=== PATIENT | female | born 1935 | race Caucasian/White ===

== ENCOUNTER → 2020-10-24 16:50 | Outpatient (CLI) | payer MEDICARE, SELFPAY ==
--- NOTE | ~2020-10-24 | MM_ITS ---
EXAMINATION: MM scrn maureen implant BI w merry HISTORY: Screening mammogram TECHNIQUE: Craniocaudal and mediolateral oblique 3-D tomosynthesis images with implant displacement a nd synthetic 2-D images were generated. Craniocaudal and mediolateral oblique views of the breasts wi thout implant displacement were obtained using full field digital mammography. CAD analysis was submi tted and interpreted. COMPARISON: 11/04/2016, 06/13/2014, 05/18/2013, 03/10/2012, 03/12/2011, 03/04/2010 bilateral implant digita l screening mammogram examinations BREAST PARENCHYMAL COMPOSITION: The breasts are heterogeneously dense, which may obscure small masses . FINDINGS: Status post bilateral augmentation mammoplasty. Bilateral benign calcified microhematomas are again present. There is asymmetric increased density in the posterior outer right breast on craniocaudal projection. Diagnostic right mammogram and right breast ultrasound examination are recommended. Otherwise there is no evidence of suspicious mass, calcification, or architectural distortion to sugg est malignancy in either breast. There has been no other suspicious interval change. IMPRESSION: 1. Asymmetric density in the posterior outer right breast 2. Diagnostic right mammogram and right breast ultrasound examination are recommended. BI-RADS Category 0: Incomplete: Needs additional imaging evaluation. Reviewed, dictated and finalized at location B. UMER SAFETY INSPECTOR IMPRESSION: 1. Asymmetric density in the posterior outer right breast 2. Diagnostic right mammogram and right breast ultrasound examination are recom mended. BI-RADS Category 0: Incomplete: Needs additional imaging evaluation.
== END ==
PROVIDERS: PCP Family Medicine; Visit Provider Family Medicine
DX: Z12.31 Encounter for screening mammogram for malignant neoplasm of breast (principal); R92.8 Other abnormal and inconclusive findings on diagnostic imaging of breast
CPT/HCPCS: 77063; 77067

== ENCOUNTER → 2020-11-15 08:32 | Outpatient (CLI) | payer MEDICARE, SELFPAY ==
--- NOTE | ~2020-11-15 | MM_ITS ---
EXAMINATION: MM diagnostic mammo implant RT HISTORY: Follow-up right breast asymmetries TECHNIQUE: Additional 3-D tomosynthesis images of the right breast were performed and synthetic 2-D i mages were generated. CAD analysis was submitted and interpreted. COMPARISON: Comparison to multiple prior studies sequentially, with oldest reviewed study dated 03/04. BREAST PARENCHYMAL COMPOSITION: Breast composed of scattered areas of fibroglandular density FINDINGS: There are partially calcified bilateral subglandular silicone implants. No significant change to mult iple asymmetric nodules in coarse calcifications in the lateral aspect of the right breast allowing f or differences of technique, likely silicone granulomas from extracapsular implant rupture. No new ma sses, calcifications or architectural distortion to suggest malignancy. IMPRESSION: 1. No significant change to asymmetric nodular densities lateral aspect of the right breast with calc ifications, likely sequela of extracapsular implant rupture. Consider correlation with MRI as clinica lly indicated. No evidence for malignancy. 2. Routine yearly screening mammogram and regular clinical breast examination are recommended. BI-RADS Category 2: Benign finding(s). Reviewed, dictated and finalized at location A. UMER LOAN OFFICER IMPRESSION: 1. No significant change to asymmetric nodular densities lateral aspect of the right breast with calcifications, likely sequela of extracapsular implant ruptu re. Consider correlation with MRI as clinically indicated. No evidence for georgi gnancy. 2. Routine yearly screening mammogram and regular clinical breast examination a re recommended. BI-RADS Category 2: Benign finding(s).
== END ==
PROVIDERS: PCP Family Medicine; Visit Provider Family Medicine
DX: R92.8 Other abnormal and inconclusive findings on diagnostic imaging of breast (principal)
CPT/HCPCS: 77065

== ENCOUNTER 2021-06-23 14:55 | Emergency (ER) | payer MEDICARE, SELFPAY ==
[2021-06-23] VITALS (10 sets, daily range): BP systolic 158–179; BP diastolic 83–91; PULSE 82–102; RESP 16–20; TEMP 36.8; O2SAT 99–100
--- NOTE | ~2021-06-23 | CT_ITS ---
EXAMINATION: CT brain wo con DATE: 06/23/2021 17:29 INDICATION: Vertigo. TECHNIQUE: Computed tomography (CT) of the head was performed without intravenous contrast. The mA wa s adjusted according to patient size. Iterative reconstruction technique was employed. The dose-lengt h product was 605.33 mGy-cm. COMPARISON: None FINDINGS: There are scattered areas of low attenuation in the cerebral white matter. There are lacuna r infarcts in the left basal ganglia. There is no intracranial hemorrhage, acute infarction, or abnor mal intracranial mass lesion. The ventricles are normal in size. There are likely changes of ocular l ens replacement surgeries. There is mucosal thickening in right sphenoid sinus with sclerosis of the sinus johnson, consistent with chronic sinusitis. The mastoid air cells are normal. IMPRESSION: 1. 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 2. Extensive nonspecific cerebral white matter disease, which likely represents chronic small vessel ischemic disease. 3. Chronic sinusitis. Reviewed, dictated and finalized at location A.
--- NOTE | 2021-06-23 14:59 | ECG_ITS ---
Measurements Intervals [place] Rate: 85 P: 43 [place]: 153 QRS: -38 QRSD: 92 T: 71 QT: 394 QTc: 470 Interpretive Statements SINUS RHYTHM POSSIBLE LEFT ATRIAL ENLARGEMENT LEFT AXIS DEVIATION BORDERLINE R WAVE PROGRESSION, ANTERIOR LEADS INFERIOR INFARCT, AGE INDETERMINATE BORDERLINE ST-T WAVE ABNORMALITY- HIGH LATERAL LEADS ABNORMAL ECG Electronically Signed On 06-23-2021 20:39:34 CDT by Ede Varghese D.O.
[2021-06-23 15:15] LABS: Basophils Absolute Auto 0.1 K/mm3 (0.0-0.1); Basophils Percent Auto 1.1 % (0.2-1.2); Eosinophils Percent Auto 0.1 % (0-4.4); Hematocrit 39.8 % (37.0-47.0); Immature Granulocyte Absolute 0.07 K/mm3 (0.00-0.031); Immature Granulocyte Percent A 0.8 % (0-0.5); Lymphocytes Absolute Auto 0.79 K/mm3 (0.9-3.2); Lymphocytes Percent Auto 9.3 % (18.3-44.2); Mean Corpuscular HGB Conc 32.7 g/dl (32-36); Mean Corpuscular Hemoglobin 31.7 pg (26-34); Mean Corpuscular Volume 97.1 fl (80-100); Mean Platelet Volume 9.6 fl (7.4-10.4); Monocytes Absolute Auto 0.3 K/mm3 (0.1-0.6); Monocytes Percent Auto 3.4 % (2.6-8.5); Neutrophils Absolute Auto 7.3 K/mm3 (1.3-6.7); Neutrophils Percent Auto 85.3 % (45.5-73.1); Platelet Count Result 350 k/mm3 (150-375); Red Cell Distribution Width 12.9 % (11.5-14.5); White Blood Count 8.5 K/mm3 (4.5-10.0)
[2021-06-23 15:31] LABS: Anion Gap 9 mmol/L (8-16); Blood Urea Nitrogen 21 mg/dL (7-17); Calcium 9.2 mg/dL (8.4-10.2); Carbon Dioxide 25 mmol/L (22-30); Chloride 100 mmol/L (98-107); Estimated CRCL calculation 43 ml/min; Estimated Glomerular Filt Rate > 60; Glucose 138 mg/dL (65-110); Potassium 4.3 mmol/L (3.4-5.0); Sodium 134 mmol/L (137-145)
[2021-06-23] MEDS: MECLIZINE HCL 25 MG TABLET PO (16:01)
[2021-06-23] MEDS: ONDANSETRON INJ 4 MG/2 ML VIAL IV PUSH (16:02)
[2021-06-23] MEDS: SODIUM CHLORIDE 0.9% IV 1,000 ML 999 ML IV CONT (16:02)
--- NOTE | 2021-06-23 16:02 | ED.DIZZY ---
HPI - Dizziness General Chief Complaint: Dizziness Stated Complaint: dizzy/n/v Time Seen by Provider: 06/23/21 15:02 Source: patient and RN notes reviewed Mode of arrival: EMS Limitations: no limitations History of Present Illness HPI Narrative: This is an 86 year old female who presents for evaluation dizziness. Patient states this morning she woke up with spinning sensation with nausea and vomiting. Her dizziness has improved. She reports it was worse with movement this morning but it is minimal currently. She reports having similar episode 30 years ago. She denies headache, focal deficit, numbness or tingling. She denies otalgia or tinnitis. she report chronic sinus disease. She denies chest pain abdominal pain or sob. Related Data Allergies Allergy/AdvReac Type Severity Reaction Status Date / Time No Known Drug Allergies Allergy Unknown Verified 08/01/15 15:34 Review of Systems Review of Systems: All systems reviewed & are unremarkable except as noted in HPI and below Constitutional: Constitutional: Denies chills and Denies fever(s) ENT: Reports vertigo, Reports nasal congestion and Denies sore throat Cardiovascular: Cardiovascular: Denies chest pain Respiratory: Respiratory: Denies cough and Denies dyspnea Gastrointestinal: Gastrointestinal: Denies abdominal pain, Denies diarrhea, Reports nausea and Reports vomiting Genitourinary: Genitourinary: Denies hematuria, Denies dysuria and Denies flank pain Neurologic: Denies headache(s), Denies focal weakness and Denies numbness PMFSH Past Medical History Medical History (Updated 06/24/21 @ 00:00 by [facility]) Hypertension Vertigo Surgical History Surgical History (Updated 06/23/21 @ 16:04 by Diana Ross MD) H/O: hysterectomy History of cholecystectomy Social History Social History (Updated 06/23/21 @ 16:04 by Diana Ross MD) Smoking status: Never smoker Exam Narrative: GENERAL: Well-appearing, well-nourished, and in no acute distress. HEAD: Normocephalic, atraumatic EYES: PERRLA and EOMI, conjunctiva clear without discharge, no nystagmus EARS: TM's clear bilaterally without erythema or dullness NOSE: Nares clear, no rhinorrhea or epistaxis THROAT:Mucous membranes moist, Oropharynx normal without erythema, exudate, peritonsillar swelling or fluctuance NECK: Supple, without lymphadenopathy or mass RESPIRATORY: No respiratory distress, Airway patent, Respirations non-labored, Clear to auscultation without rales, rhonchi or wheeze HEART: Regular rate and rhythm. No murmur heard. Normal peripheral pulses. ABDOMEN: Soft, nontender, nondistended, normal active bowel sounds. No masses. No rebound or guarding, No organomegaly. EXTREMITIES: No edema, SKIN: Warm, dry, normal color without rash NEURO: Alert and oriented x3. CN 2-12 grossly intact. No focal deficits. normal finger to nose, no nystagmus PSYCH: Normal mood and affect. Course Reevaluation(s) Reevaluation #1: Patient's labs and CT are uremarkable. She is now able to sit up and ambulate with dizziness, nausea or vomiting. No focal deficits to suggest central cause of vertigo. Date: 06/23/21 Time: 19:14 Vital Signs Vital signs: Vital Signs Temperature 98.2 F 06/23/21 14:54 Pulse Rate 87 06/23/21 14:54 Respiratory Rate 16 06/23/21 14:54 Blood Pressure 173/83 H 06/23/21 14:54 Pulse Oximetry 100 06/23/21 14:54 Temperature 98.2 F 06/23/21 14:54 Pulse Rate 82 06/23/21 19:50 Respiratory Rate 19 06/23/21 19:50 Blood Pressure 168/89 H 06/23/21 19:50 Pulse Oximetry 99 06/23/21 19:50 MDM - Dizziness Lab Data Attestation: I reviewed the patient's lab results. Result diagrams: 06/23/21 15:08 06/23/21 15:08 Labs: Lab Results 06/23/21 06/23/21 Range/Units 15:08 15:08 WBC 8.5 (4.5-10.0) K/mm3 RBC 4.10 L (4.2-5.4) M/mm3 Hgb 13.0 (12.0-15.0) g/dL Hct 39.8 (37.0-47.0) %
--- NOTE | 2021-06-23 17:15 | PC.NURSE ---
ATTEMPT TO SIT PT UP TO AMBULATED IN HALLS. PT C/O DIZZINESS UPON SITTING UPRIGHT. DR CAT NOTIFIED
[2021-06-23] MEDS: PROMETHAZINE HCL 25 MG/ML AMPUL 12.5 MG IV PUSH (17:46)
[2021-06-23] MEDS: ACETAMINOPHEN 500 MG TABLET 1000 MG PO (17:46)
--- NOTE | 2021-06-23 18:55 | PC.NURSE ---
PT WALKED IN [place]. DENIES DIZZINESS OR NAUSEA
--- NOTE | 2021-06-23 19:14 | PC.NURSE ---
Assumed care of pt. at this time. Report from [facility] [place]
== END 2021-06-23 19:50 | disposition home or self-care (01) ==
PROVIDERS: Emergency Medicine; Emergency Provider General Practice; PCP Family Medicine
DX: R42 Dizziness and giddiness (principal); R11.2 Nausea with vomiting, unspecified; J32.9 Chronic sinusitis, unspecified; I10 Essential (primary) hypertension; R90.82 White matter disease, unspecified; R94.31 Abnormal electrocardiogram [ECG] [EKG]
CPT/HCPCS: 36415; 70450; 80048; 85025; 93005; 96361; 96374; 96375; 99284; A9270; J2405; J2550; J7030

== ENCOUNTER 2021-08-12 13:54 | Outpatient (CLI) | payer MEDICARE, SELFPAY ==
--- NOTE | 2021-08-12 | ECG_ITS ---
Measurements Intervals [place] Rate: 90 P: 55 [place]: 132 QRS: -25 QRSD: 85 T: 61 QT: 360 QTc: 442 Interpretive Statements SINUS RHYTHM DELAYED PRECORDIAL R/S TRANSITION BORDERLINE ECG Electronically Signed On 08-12-2021 16:12:37 CDT by Ede Varghese D.O.
[2021-08-12 15:24] LABS: Hematocrit 38.9 % (37.0-47.0); Hemoglobin 12.5 g/dL (12.0-15.0)
[2021-08-12 15:37] LABS: Albumin Level 4.2 g/dL (3.5-5.1); Estimated Glomerular Filt Rate 43; Glucose 114 mg/dL (65-110)
[2021-08-12 15:41] LABS: Hemoglobin A1C 5.3 % (<5.7)
[2021-08-12 15:51] LABS: Urine Cotinine NEGATIVE
== END 2021-08-12 13:55 | disposition home or self-care (01) ==
PROVIDERS: PCP Family Medicine; Visit Provider Orthopaedic Surgery
DX: Z01.818 Encounter for other preprocedural examination (principal); M16.12 Unilateral primary osteoarthritis, left hip
CPT/HCPCS: 80307; 82040; 82565; 82947; 83036; 85014; 85018; 93005

== ENCOUNTER 2021-08-28 11:35 | Outpatient (CLI) | payer MEDICARE, SELFPAY ==
[2021-08-28 12:44] LABS: Add Urine Microscopic? NO; Appearance Urine Clear (Clear); Bilirubin Urine Negative (Negative); Blood Urine Negative (Negative); Color Urine Straw (Yellow); Glucose Urine UA Negative (Negative); Ketones Urine Negative (Negative); Leukocyte Esterase Ur Negative LEU/UL (NEGATIVE); Nitrate Urine Negative (Negative); Protein Urine Negative (Negative); Specific Grav Ur 1.005 (1.001-1.035); Urobilinogen Urine Negative mg/dL (<2.0)
[2021-08-28 12:47] LABS: Albumin Level 4.6 g/dL (3.5-5.1); Anion Gap 11 mmol/L (8-16); Blood Urea Nitrogen 19 mg/dL (7-17); Calcium 9.8 mg/dL (8.4-10.2); Carbon Dioxide 27 mmol/L (22-30); Chloride 95 mmol/L (98-107); Estimated Glomerular Filt Rate 60; Glucose 101 mg/dL (65-110); Phosphorus 4.1 mg/dL (2.5-4.5); Sodium 133 mmol/L (137-145)
[2021-08-28 13:30] LABS: Creatinine Urine 26.8 mg/dL; Total Protein Urine Random 11 mg/dL; Ur Ttl Prot Creatinine Ratio 0.41 mg/mg (0-0.20)
[2021-08-28 13:31] LABS: Sodium Urine Random 44 meq/L
== END 2021-08-28 11:36 | disposition home or self-care (01) ==
LOC: ANHLAB 11:40
PROVIDERS: PCP Family Medicine; Visit Provider Internal Medicine Nephrology
DX: N17.9 Acute kidney failure, unspecified (principal)
CPT/HCPCS: 36415; 80069; 81003; 82570; 84156; 84300

== ENCOUNTER 2021-09-25 10:13 | Outpatient (CLI) | payer MEDICARE, SELFPAY ==
[2021-09-25 19:22] LABS: Basophils Absolute Auto 0.1 K/mm3 (0.0-0.1); Basophils Percent Auto 1.6 % (0.2-1.2); Eosinophils Absolute Auto 0.1 K/mm3 (0-0.3); Eosinophils Percent Auto 1.8 % (0-4.4); Hematocrit 38.8 % (37.0-47.0); Hemoglobin 12.7 g/dL (12.0-15.0); Immature Granulocyte Absolute 0.05 K/mm3 (0.00-0.031); Immature Granulocyte Percent A 0.8 % (0-0.5); Lymphocytes Absolute Auto 1.48 K/mm3 (0.9-3.2); Lymphocytes Percent Auto 23.7 % (18.3-44.2); Mean Corpuscular HGB Conc 32.7 g/dl (32-36); Mean Corpuscular Hemoglobin 32.4 pg (26-34); Mean Platelet Volume 9.6 fl (7.4-10.4); Monocytes Absolute Auto 0.5 K/mm3 (0.1-0.6); Monocytes Percent Auto 8.5 % (2.6-8.5); Neutrophils Percent Auto 63.6 % (45.5-73.1); Platelet Count Result 317 k/mm3 (150-375); Red Blood Count 3.92 M/mm3 (4.2-5.4); Red Cell Distribution Width 12.6 % (11.5-14.5); White Blood Count 6.2 K/mm3 (4.5-10.0)
== END 2021-09-25 10:14 | disposition home or self-care (01) ==
LOC: ANHSURGERY 10:18
PROVIDERS: PCP Family Medicine; Visit Provider Orthopaedic Surgery
DX: Z01.812 Encounter for preprocedural laboratory examination (principal); M16.12 Unilateral primary osteoarthritis, left hip; Z51.81 Encounter for therapeutic drug level monitoring; Z79.899 Other long term (current) drug therapy
CPT/HCPCS: 36415; 85025; 87081

== ENCOUNTER 2021-10-23 00:10 | Day surgery (SDC) | payer MEDICARE, SELFPAY ==
[2021-09-25 10:38] VITALS: BP 121/74; PULSE 87; RESP 16; TEMP 36.3; O2SAT 98; BMI 23.5
--- NOTE | 2021-09-25 11:00 | PC.NURSE ---
Report to the Outpatient Waiting Room, entrance under the green pavilion located off [facility], at time _10:00AM on date ___10/23/21____. OR Time: __12:00PM . - You and your visitor will be asked a series of questions to screen for COVID 19 for your protection. - A mask is required within the hospital. - Only one visitor is allowed at this time. Patient visitors will be guided where to wait when not with patient. Preoperative COVID Testing Requirements: No COVID Test needed if: (proof is required; if not received patient will have Rapid Test prior to entry) - Patient has received COVID Vaccine at least 14 days prior to procedure date or - Patient has positive COVID test result within last 90 days of surgery date. COVID Test needed if above criteria is not met If not COVID vaccinated a COVID test must be conducted within 72 hours of surgery and patient is asked to isolate self from time of testing until procedure. You will go to the [facility] for your COVID testing. The [facility] is located at the corner of [address] [facility]. You will only be called if COVID results are positive and your surgeon may reschedule your elective surgery date. Patients may have clear liquids (water, carbonated beverages, clear teas, apple juice) until 3 hours prior to surgery with a maximum of 20 ounces. - No food from midnight until time of surgery - Infants may have breast milk until 4 hours before surgery, infant formula 6 hours prior to surgery. - Children will be allowed to drink immediately following surgery. If applicable, please bring a bottle or sippy cup to assist with drinking. Juice, water, soda, and popsicles are readily available. For infants on formula, please bring formula the day of surgery. Pacifiers are allowed. Take the following medications with a SIP of water the morning of surgery: DULOXETINE, HYDROCODONE NEEDED Medications to discontinue per physician ALL VITAMINS/SUPPLEMENTS 3 DAYS PRE-OP Date to take last dose 10/20/21 Please no make-up, nail french, hairspray, perfume, deodorant, or body powder the day of surgery. No jewelry (including any body piercings) or valuables the day of surgery, leave them at home. Please take a shower or bath the night before, or the morning of, surgery with an antibacterial soap. Wear comfortable, loose fitting clothing. Children are encouraged to wear pajamas. - Jewelry must be removed prior to entering the operating room. Rings and piercings that are not removed may be cut off. - The hospital will not accept responsibility for valuables. - Please leave all valuables, including medications, at home the day of surgery. If you are going home after surgery, a licensed hazmat cdl driver must drive you home. - NO public transportation without another adult. - We recommend that an adult stay with you for 24 hours following discharge. - We also recommend that you do not drive, make important decision, drink alcoholic beverages, or take any drugs that were not prescribed by your health care provider for at least 24 hours after your discharge time. For Pediatric surgeries, we recommend two adults accompany the child home (only one inside the building at this time). Follow any additional instructions given to you from your surgeon. Telephone instructions given to ___PATIENT & SON and asked if any additional questions and then verbalized understanding. Patient advised to call surgeon office or pre surgery nurse liaison [phone] if any additional questions.
--- NOTE | 2021-10-22 08:43 | PCCCNOTE ---
Addendum entered by Xochitl Fuller RN 10/22/21 10:06: Leisa from Dr. Osborne's office called back, states that she called [facility] and spoke with Rhett last four call reference [phone]. Auth for Inpatient will have to be reviewed and since surgery is tomorrow the best way is to keep at OPER since that is good for 48 hours and if additional inpatient needed beyond then notification needed to [facility]. Per Leisa will leave as authorized 23 hour/OPER. Leisa asks if associate director career services needs authorization # but notified that it is noted in the record. [id number] Original Note: Patient showing OPER and Full Admit in surgical instructions and comments, Per [facility] MCR authorized outpatient, called to Dr. Osborne's office sw Leisa she understands the confusion and she verifies that patient is authorized for one night 23 hour. Read through office notes patient may need rehab and could be an inpatient stay lives alone. She states that she will contact [facility] to try to obtain Inpatient Authorization and will call associate director career services back.
[2021-10-23] VITALS (13 sets, daily range): BP systolic 138–167; BP diastolic 55–96; PULSE 87–102; RESP 9–20; TEMP 36.8–37.2; O2SAT 96–100; BMI 21.7
--- NOTE | ~2021-10-23 | XR_ITS ---
EXAMINATION: XR hip LT min 2V DATE: 10/23/2021 15:30 INDICATION: Postoperative evaluation following left total hip arthroplasty TECHNIQUE: Anteroposterior and lateral views of the left hip were obtained. COMPARISON: Radiograph dated 09/02/2021 FINDINGS: Interval placement of a left total hip arthroplasty which appears well seated in near anatomic alignm ent. Acetabular component is affixed with at least a single screw expected subcutaneous gas in the po stoperative bed. No fractures identified. Severe disc height loss at L5-S1. Contralateral right tota l hip arthroplasty seen on the crosstable lateral projection. IMPRESSION: 1. Left total hip arthroplasty, negative for postoperative purposes. Reviewed, dictated and finalized at location B. S AND SERVICE REPRESENTATIVE
--- NOTE | 2021-10-23 11:18 | P.PNAN_ITS ---
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 Patient Data Age: 86 Gender: F Height: 1.52 m Weight: 54.6 kg Last Vital Signs Temp 97.4 F L 09/25/21 10:38 Pulse 87 09/25/21 10:38 Resp 16 09/25/21 10:38 BP 121/74 09/25/21 10:38 Pulse Ox 98 09/25/21 10:38 Allergies Allergy/AdvReac Type Severity Reaction Status Date / Time No Known Allergies Allergy Verified 10/23/21 10:52 Home Medications Medication Instructions Recorded Confirmed Type calcium carbonate-vitamin D3 1 tablet PO DAILY 09/25/21 10/23/21 History [Calcium + D] cholecalciferol (vitamin D3) 50 mcg PO DAILY 09/25/21 10/23/21 History duloxetine 60 mg PO QAM 09/25/21 10/23/21 History olmesartan-hydrochlorothiazide 1 tablet PO QAM 09/25/21 10/23/21 History [Benicar HCT] pantoprazole 40 mg PO QAM 09/25/21 10/23/21 History jxkwpzw-mqhr-guzni-oreg-capryl 1 cap PO DAILY 09/25/21 10/23/21 History hydrocodone 5 mg-acetaminophen 325 1 tablet PO Q6H PRN #40 tablet MDD 10/14/21 Rx mg tablet 4 Patient hx anesthesia problems: none Family hx anesthesia problems: none Results Review: All pre-operative results and documents have been reviewed as part of the pre-operative evaluation. [facility] Past Medical History Medical History Hypertension Vertigo Surgical History Surgical History H/O: hysterectomy (~1980) History of cholecystectomy History of foot surgery Right foot. Unsure what surgery exactly History of reverse total replacement of right shoulder joint (~2017) Right Reverse TSA at [facility] History of total left knee replacement (TKR) (~2016) Left TKA at [facility] History of total right hip arthroplasty (~2014) Right LIA at [facility] History of total right knee replacement (~2017) Right TKA at [facility] Family History Family History Mother Cancer Sibling Cancer Arthritis Hypertension Father Hypertension Depression Grandparent Cancer Social History Social History Smoking status: Never smoker Alcohol intake: never Substance use: never Living arrangements: alone Spiritual care concerns: No Anes - Eval Final PreProcedure Day of Procedure 10/23/21 11:18 Patient weight: normal Heart: regular rate and rhythm Lungs: clear to auscultation Airway: Mallampati scale class II Neurological: alert and oriented Last oral intake: >/= 8 hours ASA classification: III Emergent: no Anesthetic plan: proceed Anesthesia type and monitoring: general ETT and standard monitoring Results Review: All pre-operative results and documents have been reviewed as part of the pre-operative evaluation. Informed Consent: The patient's anesthetic plan and its attendant risks and benefits were discussed with the patient/family/POA. Questions were solicited and an
[2021-10-23] MEDS: LACTATED RINGERS 1,000 ML 30 ML IV CONT ×2 (11:20→14:55)
--- NOTE | 2021-10-23 11:23 | W.PM.PROC2 ---
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 Findings Extensive erosion of the femoral head, and posterior superior acetabular rim wear. Very small stature. Good press fit of implants. Description of Procedure The patient was given preoperative antibiotics. A general anesthetic was administered. The patient was carefully placed in the lateral decubitus position on the PEG board. The shoulders and hips were carefully positioned for component and leg length positioning reference. The hip was prepped and draped in the usual sterile fashion. A longitudinal incision was created over the posterior aspect of the greater trochanter. Careful dissection was brought down through the deep fascia with electrocautery. A minimally invasive optimized posterior approach to the hip was performed. The short external rotators and capsule were taken down in an L-shaped capsulotomy. The tissue was tagged for later repair using number 2 high strength suture. The femoral neck was measured and taken in situ. The femoral head was removed. The acetabulum was carefully exposed. The inferior capsule was released. The labrum was resected. The acetabulum was sequentially reamed to the intended cup size. The cup was impacted into position with excellent press-fit. Typical anatomic landmarks, including the bony contact points as well as the inferior transverse acetabular ligament were used to confirm cup positioning with preoperative templating. Attention was turned to the femur, which was carefully exposed. The hip was reamed and then broached sequentially. Excellent press-fit was obtained with the broach. The hip was trialed. Measurements were utilized, including the lesser trochanter as well as the center of the femoral head and the tip of the trochanter, and excellent assessment of the offset and leg lengths were confirmed. The real component was impacted into position. Trialing confirmed appropriate leg length and offset with soft tissue balancing as well apparent feel of the leg, both at the knee and the heel. Soft tissues were assessed using the the iliotibial band. Reduction of the posterior capsule and external rotators were also used as a secondary assessment. A supplemental screw was placed in the cup and real liner placed. The hip was copiously irrigated with pulsatile lavage antibiotic solution periodically throughout the procedure. The real components were then assembled and reduced. The hip was stable throughout typical maneuvers, including extension, external rotation to 70 degrees, the position of sleep as well as flexion to 90 degrees with internal rotation past 45 degrees. The shake test confirmed stability without impingement. Osteophytes were removed as necessary. The short external rotators and capsule were repaired back to the posterior trochanter through drill holes. The deep fascia was repaired with running number 2 Quill suture, followed by 0 Stratafix suture and 2-0 Stratafix suture in the dermis. Steri-Strips were placed on the skin, followed by a sterile silver occlusive dressing. There were no complications. Meticulous hemostasis was maintained with the AquaMantys device. The patient was brought to the recovery room in stable condition. There were no complications. Physician boiler assistant operator, Katy Reynolds PA-C, required for surgery; including patient positioning, draping, tissue retraction, maintaining instrument position, hip dislocation and relocation, wound closure, and dressing placement. Implants The Accolade II hip stem, 127 degree size 2 , was utilized with excellent press-fit. The 46 mm Trident II acetabular component was impacted with excellent press-fit stability. The -4
[2021-10-23] MEDS: TRANEXAMIC ACID 1,000MG/ISO100 1,000 MG/100 ML BAG 200 MG IVPB (11:30)
--- NOTE | 2021-10-23 12:10 | WPDHPUPDATE1 ---
History and Physical Update Update Date/Time: 10/23/21 12:10 History and Physical has been reviewed, including an updated exam of the patient. There are NO changes in the patient's condition. Risks, benefits, and alternatives have been discussed and questions answered. Patient agrees to proceed with procedure.
[2021-10-23] MEDS: ceFAZolin 2 GM/D5W 50 ML 2 GM/50 ML BAG IVPB ×2 (12:25→21:10)
--- NOTE | 2021-10-23 15:25 | SUR.PHASEI ---
PORTABLE XRAY OF LEFT HIP DONE.
[2021-10-23] MEDS: fentaNYL CITRATE INJ (*CRX) 100 MCG/2 ML VIAL 25 MCG IV PUSH ×5 (15:33→16:25)
--- NOTE | 2021-10-23 17:15 | ADMGEN ---
This patient, Kaitlynn Quezada, was admitted to [facility] Surgery[facility]5. Patient/family oriented to hospital policies and general routines including ID bracelet, bed and alarms, visiting hours, pain management, procedures, bathroom and other care routines, personal items, smoking policy, room service/diet, and visiting hours. Information on how to activate the Rapid Response Team has been discussed. Patient/Family are encouraged to report perceived risks to care and to ask questions if they do not understand what they are told or what they should do.
[2021-10-23] MEDS: SODIUM CHLORIDE 0.9% IV 1,000 ML 125 ML IV CONT (17:38)
[2021-10-23] MEDS: ASPIRIN 81 MG ENTERIC TABLET PO (18:20)
[2021-10-23] MEDS: SENNA/DOCUSATE SODIUM TABLET 2 TAB PO (18:21)
[2021-10-23] MEDS: oxyCODONE HCL (*CRX) 5 MG TAB IR PO (22:12)
[2021-10-24] MEDS: ACETAMINOPHEN 500 MG TABLET 1000 MG PO ×2 (01:02→06:09)
[2021-10-24 02:25] VITALS: BP 149/67; PULSE 98; RESP 18; TEMP 36.7; O2SAT 97
[2021-10-24] MEDS: oxyCODONE HCL (*CRX) 5 MG TAB IR PO (04:30)
[2021-10-24] MEDS: ceFAZolin 2 GM/D5W 50 ML 2 GM/50 ML BAG IVPB (04:30)
[2021-10-24 06:29] VITALS: BP 140/64; PULSE 102; RESP 20; TEMP 36.8; O2SAT 96
[2021-10-24] MEDS: polyethylene glycoL 3350 17 GM POWD.PACK PO (09:28)
[2021-10-24 09:30] VITALS: BP 128/59; PULSE 99; RESP 16; TEMP 37; O2SAT 98
[2021-10-24] MEDS: DULoxetine HCL 60 MG CAPSULE.DR PO (09:30)
[2021-10-24] MEDS: PANTOPRAZOLE 40 MG TABLET PO (09:31)
[2021-10-24] MEDS: OLMESARTAN MEDOXOMIL 20 MG TABLET PO (09:31)
[2021-10-24] MEDS: SENNA/DOCUSATE SODIUM TABLET 2 TAB PO (09:31)
[2021-10-24] MEDS: hydroCHLOROthiazide 12.5 MG CAPSULE PO (09:31)
[2021-10-24] MEDS: ASPIRIN 81 MG ENTERIC TABLET PO (09:31)
[2021-10-24 12:00] VITALS: BP 130/60; PULSE 90; RESP 16; TEMP 36.7; O2SAT 97
[2021-10-24 14:03] LABS: EDCOVIDSCREEN Negative (Negative)
--- NOTE | 2021-10-24 14:06 | P.DS_ITS ---
DS: Admitting Diagnosis Discharge Date 10/24/21 Admitting Diagnosis OA Left hip DS: Discharge Diagnosis Discharge Diagnosis (1) Status post total hip replacement, left: Code(s): Z96.642 - Presence of left artificial hip joint Status: Acute Assessment and Plan: Postop day 1: Total hip arthroplasty. Complicated LIA. Collapse of femoral head intraoperatively. Prior to surgery she was unable to walk due to severe pain and instability. Patient tolerated procedure well. No complications. Pain manageable with pain medication. No numbness or tingling. We had a lengthy discussion regarding postoperative wound care, limitations, expectations, and exercises. Patient shows good understanding. Patient has had initial physical therapy and is needing assistance with ambulating. She will be discharged to SNF for PT and OT prior to going home. DVT prophylaxis: 81 mg baby aspirin b.i.d. for 14 days. Short frequent walks. Compression socks bilaterally. Pain medication: Percocet. Meloxicam. Prednisone. Patient has followup appointment with Dr. Osborne in 3 weeks DS: Summary Hospital Course Reason for hospitalization: Total hip arthroplasty Hospital Course: Patient tolerated procedure well. Has had initial PT/OT. Needs more help with ADLs and ambulating. Will be discharged to SNF. Status at Discharge Functional status at discharge: uses cane/walker Overall status at discharge: patient is progressing back to baseline Time Spent with Patient Time attestation: Total time spent providing and/or coordinating discharge services: Exam Narrative: 86 y/o female. Resting comfortably in chair. Wearing compression socks bilaterally. Dressing dry and intact with no drainage. Mild swelling. No ecchymosis. No erythema. No hematoma. Range of motion limited due to pain. Calf nontender. Thigh nontender. Neurologic status intact. No varicosities. Distal pulses palpable. DS: Data Data Completed and Pending Labs on day of discharge: Labs from last 24 hours 10/24/21 13:46 SARS-CoV-2 IgG/IgM Ag?Rapid Negative Discharge Plan Discharge Patient Disposition: SNF Discharge Instructions: See green instruction sheet Follow-up/Referrals: Katy Reynolds PA [Physician Philosophy Faculty] - Discharge Medications: New meloxicam 15 mg tablet 15 mg PO DAILY Qty: 30 RF: 0 aspirin 81 mg tablet,delayed release (DR/EC) 81 mg PO BID 14 Days Qty: 28 RF: 0 oxycodone-acetaminophen 5-325 mg tablet 1 - 2 tablet PO Q4-6H MDD 6 PRN (Reason: pain) Qty: 30 RF: 0 prednisone 5 mg tablet 5 mg PO DAILY 21 Days Qty: 21 RF: 0 Continued pantoprazole 40 mg tablet,delayed release (DR/EC) 40 mg PO QAM RF: 0 olmesartan-hydrochlorothiazide [Benicar HCT] 20-12.5 mg tablet 1 tablet PO QAM RF: 0 duloxetine 60 mg capsule,delayed release(DR/EC) 60 mg PO QAM RF: 0 cholecalciferol (vitamin D3) 50 mcg (2,000 unit) Capsule 50 mcg PO DAILY RF: 0 calcium carbonate-vitamin D3 600 mg-5 mcg (200 unit) Tablet 1 tablet PO DAILY RF: 0 wxtiztc-wnsg-upwmr-oreg-capryl 100 mg-150 mg- 50 mg-150 mg Capsule 1 cap PO DAILY RF: 0 Discontinued hydrocodone-acetaminophen 5-325 mg tablet 1 tablet PO Q6H MDD 4 PRN (Reason: pain) Qty: 40 RF: 0
== END 2021-10-24 15:10 ==
LOC: ANHSURGERY 15:14 → ANHSUROVER 17:04
PROVIDERS: PCP Family Medicine; Visit Provider Orthopaedic Surgery
PROC: (CPT 27130; principal; 2021-10-23 12:00)
DX: M16.12 Unilateral primary osteoarthritis, left hip (principal); M87.852 Other osteonecrosis, left femur; I10 Essential (primary) hypertension
CPT/HCPCS: 27130; 36415; 73502; 86850; 86900; 86901; 87426; 97110; 97116; 97161; 97165; 97530; A9270; C1776; C9803; J0131; J0171; J0330; J0690; J1100; J1170; J1885; J2250; J2270; J2370; J2405; J2704; J2710; J2795; J3010; J7030; J7120

== ENCOUNTER 2021-12-16 15:38 | Outpatient (CLI) | payer MEDICARE, SELFPAY ==
--- NOTE | ~2021-12-16 | US_ITS ---
EXAMINATION: US renal BI EXAM DATE: 12/16/2021 16:12 INDICATION: Acute kidney failure. TECHNIQUE: Multiple grayscale and Doppler images of the kidneys were obtained (by a technologist who performed the scan) and subsequently reviewed. There is no prior study for comparison. FINDINGS: Right kidney: There is normal contour and echogenicity. It measures 8.5 x 3.1 x 4.9 centimeters. Th ere are no focal renal lesions identified. There is no hydronephrosis. Left kidney: There is normal contour and echogenicity. It measures 8.4 x 3.1 x 4.2 centimeters. The re are no focal renal lesions identified. There is no hydronephrosis. Bladder unremarkable. IMPRESSION: Mild bilateral renal atrophy. Reviewed, dictated and finalized at location B. ICAL AIDES TEACHER
== END 2021-12-16 15:39 | disposition home or self-care (01) ==
LOC: ANHIMG 15:41
PROVIDERS: PCP Family Medicine; Visit Provider Internal Medicine Nephrology
DX: N17.9 Acute kidney failure, unspecified (principal); N26.1 Atrophy of kidney (terminal)
CPT/HCPCS: 76775

== ENCOUNTER → 2022-05-14 10:36 | Outpatient (CLI) | payer MEDICARE, SELFPAY ==
--- NOTE | ~2022-05-14 | MM_ITS ---
EXAMINATION: MM scrn maureen implant BI w merry HISTORY: Screening mammogram TECHNIQUE: Craniocaudal and mediolateral oblique 3-D tomosynthesis images with implant displacement a nd synthetic 2-D images were generated. Craniocaudal and mediolateral oblique views of the breasts wi thout implant displacement were obtained using full field digital mammography. CAD analysis was submi tted and interpreted. COMPARISON: 11/15/2020 right diagnostic mammogram 10/24/2020 bilateral implant screening mammogram BREAST PARENCHYMAL COMPOSITION: There is heterogeneously dense breast tissue, which may obscure small masses. FINDINGS: Status post bilateral augmentation mammoplasty. Bilateral calcified hematomas. There is no evidence of suspicious mass, calcification, or architectural distortion to suggest malign renee in either breast. There has been no suspicious interval change. IMPRESSION: 1. No mammographic evidence of malignancy. 2. Recommend routine screening mammography in one year. BI-RADS Category 2: Benign finding(s). Reviewed, dictated and finalized at location A.
== END ==
PROVIDERS: PCP Family Medicine; Visit Provider Family Medicine
DX: Z12.31 Encounter for screening mammogram for malignant neoplasm of breast (principal)
CPT/HCPCS: 77063; 77067

== ENCOUNTER → 2022-05-29 15:41 | Outpatient (CLI) | payer MEDICARE, SELFPAY ==
--- NOTE | ~2022-05-29 | DEXA_ITS ---
Bone Density Report Name: JODI HANKINS Age: 87 Sex: Female Ethnicity: White Date of : 1935 Indication: postmenopausal; screening for osteoporosis; parental hip fracture; height loss; prior fracture; hysterectomy; Referring Provider: NATALIIA, GLORIA [place] Study: Bone densitometry was performed. Exam Date: May 29, 2022 Accession number: [id number] Bone Density: Region BMD T-score Z-score Classification AP Spine (L1-L4) 1.190 1.3 4.2 Normal World Health Organization criteria for BMD impression classify patients as: Normal (T-score at or above -1.0), Osteopenia (T-score between -1.0 and -2.5), or Osteoporosis (T-score at or below -2.5). Previous Exams: Region Exam Age BMD T-score BMD Change BMD Change Date g/cm2 vs Baseline vs Previous AP Spine(L1-L4) 05/29/2022 87 1.190 1.3 -0.044* -0.044* 06/13/2014 79 1.234 1.7 *Denotes significance at 95% confidence level, LSC for AP Spine = 0.022 g/cm2 Clinical Information Provided by Patient: Has had a low trauma fracture Parent has had a hip fracture Has used the following medications: Vitamin D Has the following medical conditions: Hysterectomy Patient maximum height was 61 Menopause Age: 45 No regular weight bearing exercise Does not regularly consume dairy products Drinks caffeinated beverages Onset of menses at age 13 Number of children 0 Impression: The patient has normal bone mass. The patient has risk factors, including: parental hip fracture, previous fracture. The BMD for the AP Spine(L1-L4) decreased, changing by -0.044 since the last DXA exam. Discussion: LOW RISK OF FRACTURE; BONE DENSITY IS WELL ABOVE THE MINIMUM DESIRABLE LEVEL AND ABOVE AVERAGE FOR AGE AND SEX AT ALL SKELETAL SITES TESTED. This person's bone density is above expected limits for age and sex. This is rarely clinically significant, but should be pursued if there are significant musculoskeletal complaints. The patient should follow a healthful lifestyle (good nutrition with adequate calcium and vitamin D, and appropriate weight-bearing exercise). Follow-Up: Consider repeating this study in 3 to 4 years to reassess this patient's status, or sooner if there is some new clinical indication. Reported by: [facility] on 05/29/2022 3:55:00 PM. Reviewed, dictated and finalized at location Venkata OLMEDO
== END ==
PROVIDERS: PCP Family Medicine; Visit Provider Family Medicine
DX: M81.0 Age-related osteoporosis without current pathological fracture (principal)
CPT/HCPCS: 77080

== ENCOUNTER 2024-06-27 13:25 | Outpatient (CLI) | payer MEDICARE, SELFPAY ==
--- NOTE | ~2024-06-27 | DEXA_ITS ---
Bone Density Report Name: JODI HANKINS Age: 89 Sex: Female Ethnicity: White Date of : 1935 Indication: postmenopausal; screening for osteoporosis; height loss; Referring Provider: DEISY, KATHE Cm Study: Bone densitometry was performed. Exam Date: June 27, 2024 Accession number: [id number] Bone Density: Region BMD T-score Z-score Classification AP Spine(L2, L3, L4) 1.244 1.5 4.5 Normal World Health Organization criteria for BMD impression classify patients as: Normal (T-score at or above -1.0), Osteopenia (T-score between -1.0 and -2.5), or Osteoporosis (T-score at or below -2.5). Clinical Information Provided by Patient: Has used the following medications: Vitamin D Patient maximum height was 61.0 No regular weight bearing exercise Drinks caffeinated beverages Onset of menses at age 13 Number of children 0 Impression: The patient has normal bone mass. Discussion: LOW RISK OF FRACTURE; BONE DENSITY IS WELL ABOVE THE MINIMUM DESIRABLE LEVEL AND ABOVE AVERAGE FOR AGE AND SEX AT ALL SKELETAL SITES TESTED. This person's bone density is above expected limits for age and sex. This is rarely clinically significant, but should be pursued if there are significant musculoskeletal complaints. The patient should follow a healthful lifestyle (good nutrition with adequate calcium and vitamin D, and appropriate weight-bearing exercise). Follow-Up: Consider repeating this study in 5 years or sooner if there is some new clinical indication. Reported by: ISABELA on 06/27/2024 1:55:00 PM. Reviewed, dictated and finalized at location AMichelle OLMEDO
== END 2024-06-27 13:26 | disposition home or self-care (01) ==
LOC: ANHIMG 13:30
PROVIDERS: PCP Physician Assistant; Visit Provider Physician Assistant
DX: M81.0 Age-related osteoporosis without current pathological fracture (principal)
CPT/HCPCS: 77080

== ENCOUNTER 2024-10-07 22:21 | Emergency (ER) | payer MEDICARE, SELFPAY ==
--- NOTE | ~2024-10-07 | CT_ITS ---
EXAMINATION: CT brain wo con DATE: 10/07/2024 23:35 INDICATION: Fall. TECHNIQUE: Computed tomography (CT) of the head was performed without intravenous contrast. The mA wa s adjusted according to patient size. Iterative reconstruction technique was employed. The dose-lengt h product was 681.00 mGy-cm. COMPARISON: Head CT 06/23/2021 FINDINGS: There are scattered areas of low attenuation in the cerebral white matter. There are old la cunar infarcts in the left basal ganglia. There is no intracranial hemorrhage, acute infarction, or a bnormal intracranial mass lesion. The ventricles are normal in size. There are likely changes of ocul ar lens replacement surgeries. There is mucosal thickening in right sphenoid sinus with thickening an d sclerosis of the sinus johnson, consistent with chronic sinusitis. The mastoid air cells are normal. IMPRESSION: 1. 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 2. Stable extensive nonspecific cerebral white matter disease, which likely represents chronic small vessel ischemic disease. 3. Chronic sinusitis. Reviewed, dictated and finalized at location A. BING INSTRUCTOR IMPRESSION: 1. 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 2. Stable extensive nonspecific cerebral white matter disease, which likely rep resents chronic small vessel ischemic disease. 3. Chronic sinusitis.
--- NOTE | ~2024-10-07 | CT_ITS ---
EXAMINATION: CT cervical spine wo con DATE: 10/07/2024 23:34 INDICATION: Neck injury. Fall. TECHNIQUE: Computed tomography (CT) of the cervical spine was performed without intravenous contrast. Automated exposure control and iterative reconstruction technique were employed. The dose-length pro duct was 135.54 mGy-cm. COMPARISON: None FINDINGS: There is mild scarring at the lung apices. There is 3 degrees dextrocurvature of cervical s pine. There is 2 mm anterolisthesis of C4 on C5. The following disc levels are specifically discussed : C2-C3: There is no uncovertebral joint osteoarthritis. There is severe bilateral facet joint osteoart hritis. There is mild left neural foraminal stenosis. There is no central canal stenosis. C3-C4: There is severe right and mild left uncovertebral joint osteoarthritis. There is severe bilate ral facet joint osteoarthritis. There is mild bilateral neural foraminal stenosis. There is no centra l canal stenosis. C4-C5: There is no uncovertebral joint osteoarthritis. There is ankylosis of the facet joints with mi ld hypertrophy. There is mild right neural foraminal stenosis. There is no central canal stenosis. C5-C6: There is severe bilateral uncovertebral joint osteoarthritis. There is severe bilateral facet joint osteoarthritis. There is mild bilateral neural foraminal stenosis. There is mild central canal stenosis. C6-C7: There is severe bilateral uncovertebral joint osteoarthritis. There is severe bilateral facet joint osteoarthritis. There is moderate bilateral neural foraminal stenosis. There is mild central ca nal stenosis. C7-T1: There is no uncovertebral joint osteoarthritis. There is severe bilateral facet joint osteoart hritis. There is mild bilateral neural foraminal stenosis. There is no central canal stenosis. IMPRESSION: 1. No fracture. 2. Severe cervical spondylosis. Reviewed, dictated and finalized at location A. URER IN COMPUTER SCIENCE
--- NOTE | ~2024-10-07 | XR_ITS ---
EXAMINATION: XR knee LT 3V DATE: 10/07/2024 22:55 INDICATION: Left knee joint replacement. Fall. TECHNIQUE: 3 views of left knee were obtained. COMPARISON: None. FINDINGS: There is a total left knee arthroplasty in near-anatomic alignment with patellar resurfacin g. No fracture. No periprosthetic lucency to suggest loosening or infection. No knee joint effusion. IMPRESSION: 1. Total left knee arthroplasty in near-anatomic alignment. Reviewed, dictated and finalized at location A. SCAPE GARDENER
--- NOTE | ~2024-10-07 | XR_ITS ---
EXAMINATION: XR hand LT min 3V DATE: 10/07/2024 22:55 INDICATION: Fall. Laceration of the left hand third digit. TECHNIQUE: 3 views of left hand were obtained. COMPARISON: None. FINDINGS: There is 8 mm positive ulnar variance. There is ulnar subluxation of third, fourth, and fif th middle phalanges with respect to the proximal phalanges. There is remodeling of the distal ulna an d proximal lunate and triquetrum, consistent with ulnolunate impaction syndrome. There is moderate os teoarthritis of triscaphe joint and first carpometacarpal joint. There is severe osteoarthritis of fi rst metacarpophalangeal joint and all of the interphalangeal joints. IMPRESSION: 1. No fracture. 2. Polyarticular osteoarthritis. Reviewed, dictated and finalized at location A. LRY DESIGNER
[2024-10-07 22:26] VITALS: PULSE 84; RESP 15; TEMP 36.8; O2SAT 100
[2024-10-07 23:06] VITALS: TEMP 36.6
[2024-10-07] MEDS: TETANUS,DIPHTHERIA,AC PERTUSSIS ADULT (0.5 ML) BOOSTRIX IM (23:46)
--- NOTE | 2024-10-07 23:50 | ED_ITS ---
HPI - General Adult General Chief complaint: Wound/Laceration Stated complaint: fall, lac to left eyebrow, no blood thinners Time Seen by Provider: 10/07/24 22:38 History of Present Illness HPI narrative: This is a pleasant 89-year-old female presenting after a ground level fall. She was caring too many groceries when she strict tripped and fell striking her head. She did not lose consciousness. She is not on blood thinners. She has a small lack over her left eyebrow as well as a small cut on her left hand and some pain in her left knee. No other injuries. Related Data Home Medications ?Medication ?Instructions ?Recorded ?Confirmed ?Last Taken ?Type calcium 600 mg (as 1 tablet PO DAILY 09/25/21 04/17/22 10/20/21 History carbonate)-vitamin D3 5 mcg (200 unit) tablet cholecalciferol (vitamin D3) 50 50 mcg PO DAILY 09/25/21 04/17/22 10/20/21 History mcg (2,000 unit) capsule duloxetine 60 mg capsule,delayed 60 mg PO QAM 09/25/21 04/17/22 10/23/21 History release olmesartan 20 1 tablet PO QAM 09/25/21 04/17/22 10/22/21 History mg-hydrochlorothiazide 12.5 mg tablet (Benicar HCT) pantoprazole 40 mg tablet,delayed 40 mg PO QAM 09/25/21 04/17/22 10/22/21 Histo ry release Allergies Allergy/AdvReac Type Severity Reaction Status Date / Time No Known Allergies Allergy Verified 10/07/24 22:32 [facility] Past Medical History Medical History Hypertension Vertigo Surgical History Surgical History H/O: hysterectomy (~1980) History of cholecystectomy History of foot surgery Right foot. Unsure what surgery exactly History of reverse total replacement of right shoulder joint (~2017) Right Reverse TSA at [facility] History of total left knee replacement (TKR) (~2016) Left TKA at [facility] History of total right hip arthroplasty (~2014) Right LIA at [facility] History of total right knee replacement (~2016) Right TKA at [facility] Family History Family History Mother Cancer Sibling Cancer Arthritis Hypertension Father Hypertension Depression Grandparent Cancer Social History Social History Smoking status: Never smoker Alcohol intake: never Substance use: never Living arrangements: alone Spiritual care concerns: No Exam Narrative: APPEARANCE: No apparent distress. Head: atraumatic. EYES: EOMI, NOSE: Atraumatic NECK: Trachea midline RESPIRATORY: No increased rate of breathing Clear to auscultation CARDIOVASCULAR: RRR, ABDOMINAL: Non-distended MUSCULOSKELETAl: No obvious deformities, focal exam left knee revealed some minor bruising no deformity significant legs are neurovascular intact NEURO: Alert. Cranial nerves 2-12 grossly intact. Sensation light touch, motor function cerebellar function intact for 4 extremities. Gait exam was normal. SKIN:: 2 cm laceration to the left eyebrow, 1.5 cm laceration to the base of the left 3rd digit PSYCHIATRIC: Normal affect Course Vital Signs Vital signs: Vital Signs Temperature 98.3 F 10/07/24 22:26 Pulse Rate 84 10/07/24 22:26 Respiratory Rate 15 10/07/24 22:26 Pulse Oximetry 100 10/07/24 22:26 Temperature 97.8 F 10/07/24 23:06 Pulse Rate 84 10/07/24 22:26 Respiratory Rate 15 10/07/24 22:26 Pulse Oximetry 100 10/07/24 22:26 Procedures Laceration Laceration 1: Date: 10/07/24 Site: face Side (If applicable): left Size (cm): 2 Description: linear Depth: simple, single layer Local Anesthetic: lidocaine 1% and with epi Amount of anesthesia used (mL): 2 Pre-repair: wound explored and irrigated extensively ====== Skin Level ====== Skin layer closed with: prolene Size (cm): 5-0 Number of sutures: 3 ====== Subcutaneous Layer ====== ====== Muscle Layer ====== ====== Tendon Layer ====== Laceration 2: Date: 10/07/24 Site: hand Side (If applicable): left Size (cm): 1.5 Description: linear Depth: simple, single layer Local Anesthetic: lidocaine 1% and with epi Amount of anesthesia used (mL): 2 Pre-repair: wound explored and irrigated extensively ====== Skin Level ====== Skin layer closed with: prolene Size (cm): 5-0 Number of sutures: 3 Technique: simple, interrupted ====== Subcutaneous Layer ====== ====== Muscle Layer ====== ====== Tendon Layer ====== Medical Decision Making MDM Narrative Medical decision making narrative: -Course: a 59-year-old female presenting after mechanical fall. Trauma imaging negative for acute injury. Lacerations were repaired. Patient's physical exam is unremarkable and vital signs are stable. Patient discharged with primary care follow-up. -DDX includes but is not limited to: Intracranial hemorrhage, concussion, soft tissue -Independent interpretation of studies: labs/ imaging reviewed -Shared decision making / Disposition:dischaged Vital Signs Vital Signs: Vital Signs Temperature 98.3 F 10/07/24 22:26 Pulse Rate 84 10/07/24 22:26 Respiratory Rate 15 10/07/24 22:26 Pulse Oximetry 100 10/07/24 22:26 Temperature 97.8 F 10/07/24 23:06 Pulse Rate 84 10/07/24 22:26 Respiratory Rate 15 10/07/24 22:26 Pulse Oximetry 100 10/07/24 22:26 Discharge Plan Discharge Clinical Impression: Fall, Acute knee pain, Facial laceration, Hand laceration Patient Disposition: Home, Self-Care Condition: Stable Instructions: Antibiotic Form, Care For Your Stitches (ED) Additional Instructions: The sutures in her face should be removed in 5-7 days. The sutures in her hand need to be removed in 10-14 days. Please return to the ED if he develops signs of infection. Please follow-up your primary care physician in 5-7 days for suture removal and follow-up. Patient Language: Hungarian Prescriptions: No Action pantoprazole 40 mg tablet,delayed release (DR/EC) 40 mg PO QAM olmesartan-hydrochlorothiazide [Benicar HCT] 20-12.5 mg tablet 1 tablet PO QAM duloxetine 60 mg capsule,delayed release(DR/EC) 60 mg PO QAM cholecalciferol (vitamin D3) 50 mcg (2,000 unit) Capsule 50 mcg PO DAILY calcium carbonate-vitamin D3 600 mg-5 mcg (200 unit) Tablet 1 tablet PO DAILY aspirin 81 mg tablet,delayed release (DR/EC) 81 mg PO BID 14 Days Qty: 28 0RF Follow-up/Referrals: Jamie,NBA Maurice [Primary Care Provider] -
[2024-10-07 23:56] VITALS: BP 164/96; PULSE 78; RESP 15; O2SAT 100
[2024-10-08 00:44] VITALS: BP 160/82; PULSE 76; RESP 15; O2SAT 100
== END 2024-10-08 00:48 | disposition home or self-care (01) ==
PROVIDERS: Emergency Provider Emergency Medicine; PCP Physician Assistant
DX: S01.112A Laceration without foreign body of left eyelid and periocular area, initial encounter (principal); S61.412A Laceration without foreign body of left hand, initial encounter; S80.02XA Contusion of left knee, initial encounter; Z23 Encounter for immunization; M19.032 Primary osteoarthritis, left wrist; M18.9 Osteoarthritis of first carpometacarpal joint, unspecified; M19.042 Primary osteoarthritis, left hand; Z96.611 Presence of right artificial shoulder joint; Z96.653 Presence of artificial knee joint, bilateral; Z96.641 Presence of right artificial hip joint; Z90.49 Acquired absence of other specified parts of digestive tract; Z90.710 Acquired absence of both cervix and uterus; W01.0XXA Fall on same level from slipping, tripping and stumbling without subsequent striking against object, initial encounter
CPT/HCPCS: 12001; 12011; 70450; 72125; 73130; 73562; 90471; 90715; 99282; 99284